=== PATIENT | male | born 1995 | race Caucasian/White ===

== ENCOUNTER 2016-12-14 11:17 | Inpatient (IN) | payer OTHER ==
[~2016-12-14] VITALS: Ht 170.2 cm; Wt 68.2 kg
[2016-12-14 11:38] LABS: EOSINOPHIL (%) 0.3 % (0-5); HEMATOCRIT 44.9 % (38.0-50.0); IMMATURE GRANULOCYTE (%) 0.1 % (0.0-0.7); IMMATURE GRANULOCYTE COUNT 0.1 K/uL; LYMPHOCYTE COUNT 1.9 K/uL (1.0-2.8); MCH 30.8 PG (29.0-34.0); MCHC 34.7 G/DL (30.0-36.0); MCV 88.6 FL (86-99); MEAN PLAT.VOLUME 11.1 uM^3 (9.0-12.4); MONOCYTE (%) 13.1 % (3-12); NEUTROPHIL (%) 62.5 % (45-76); NEUTROPHIL COUNT 4.9 K/uL (1.8-6.4); PLATELET COUNT 215 K/uL (156-360); RBC DIS.WIDTH-CV 13.5 % (11.8-14.6); RBC DIS.WIDTH-SD 43.3 % (39-53); RED BLOOD COUNT 5.07 M/uL (4.00-5.50); WHITE BLOOD COUNT 7.9 K/uL (4.1-10.2)
[2016-12-14 11:49] LABS: AMYLASE 43 IU/L (1-118); CHLORIDE 101 mEq/L (99-109); POTASSIUM 3.4 mEq/L (3.7-5.4); SODIUM 138 mEq/L (136-147)
[2016-12-14 11:51] LABS: GLUCOSE 125 mg/dL (70-99)
[2016-12-14 11:53] LABS: ANION GAP 14 MEQ/L (2-14)
[2016-12-14 11:54] LABS: SERUM ETHYL ALCOHOL < 10 mg/dL
[2016-12-14 11:55] LABS: GFR ESTIMATE (CALCULATED) > 59 mL/min/
[2016-12-14 11:56] LABS: UREA NITROGEN (BUN) 18 mg/dL (9-23)
[2016-12-14 11:58] LABS: LIPASE 21 U/L (1.0-51.0)
[2016-12-14 13:27] LABS: ADD MIUA? YES; BILIRUBIN NEGATIVE; BLOOD NEGATIVE; COLOR YELLOW ((YELLOW)); GLUCOSE (STRIP) NEGATIVE; KETONES 5; LEUKOCYTES NEGATIVE; NITRITE NEGATIVE; PROTEIN (STRIP) NEGATIVE; SPECIFIC GRAVITY 1.045 (1.000-1.030); UROBILINOGEN 0.2 MG/DL (0.2-1.0)
[2016-12-14 13:28] LABS: BACTERIA NONE SEEN /HPF; EPITHELIAL CELLS NONE SEEN /HPF; MUCUS TRACE /LPF; RED BLOOD CELLS 0-5 /HPF (0-5); UCUL ADDED? NO; WHITE BLOOD CELLS 0-5 /HPF (0-5)
[2016-12-14 13:46] LABS: AMPHETAMINE NEGATIVE (500 ng/mL); BARBITURATES NEGATIVE (200 ng/mL); BENZODIAZEPINES NEGATIVE (150 ng/mL); COCAINE NEGATIVE (150 ng/mL); METHADONE NEGATIVE (200 ng/mL); METHAMPHETAMINE NEGATIVE (500 ng/mL); OPIATES (MORPHINE) PRESUMPTIVE POSITIVE (100 ng/mL); OXYCODONE NEGATIVE (100 ng/mL); PHENCYCLIDINE NEGATIVE (25 ng/mL); THC CANNABINOIDS NEGATIVE (50 ng/mL); TRICYCLIC ANTIDEPRESSANTS NEGATIVE (300 ng/mL)
[2016-12-14 13:47] LABS: ADD MEDTOX COMMENT Y; INTERNAL CONTROLS VALID? YES; PROPOXYPHENE NEGATIVE (300 ng/mL)
[2016-12-14 19:51] VITALS: BP 132/68
[2016-12-14 23:50] VITALS: BP 114/59
[2016-12-15 04:06] VITALS: BP 124/68
[2016-12-15 07:41] VITALS: BP 118/60
[2016-12-15] MEDS ORDERED: LOVENOX40 MG/0.4 SC (08:02)
[2016-12-15] MEDS ORDERED: ENDOCET 5-3251 EACH PO (08:02)
[2016-12-15 16:30] VITALS: BP 128/65
== END 2016-12-15 17:39 | disposition home or self-care (01) | DRG 482 ==
LOC: TRA 11:17 → SDC 13:50 → 2SOUTH 16:17 → 3EAST 16:17
PROVIDERS: Emergency Medicine
PROC: 0QS906Z Reposition Left Femoral Shaft with Intramedullary Internal Fixation Device, Open Approach (ICD-10-PCS; principal; 2016-12-14)
DX: S72.322A Displaced transverse fracture of shaft of left femur, initial encounter for closed fracture (principal); F17.210 Nicotine dependence, cigarettes, uncomplicated; V83.9XXA Unspecified occupant of special industrial vehicle injured in nontraffic accident, initial encounter; Y93.89 Activity, other specified; Y99.9 Unspecified external cause status
CPT/HCPCS: 70450; 71010; 71260; 72125; 72170; 73551; 73552; 73560; 74177; 76000; 80048; 81003; 82150; 83690; 84999; 85025; 86850; 86900; 86901; 99281; 99285; C1713; G0480; J0690; J1100; J1170; J1650; J2175; J2250; J2405; J3010; J7050